=== PATIENT | female | born 1965 | race Two or more races ===

== ENCOUNTER 2020-10-16 06:32 | Emergency (ER) | payer OTHER ==
[~2020-10-16] VITALS: Ht 154.9 cm; Wt 77.1 kg
[2020-10-16 07:14] LABS: Basophils # (auto) 0 10 ^3/uL (0-0.2); Basophils % (auto) 0.7 % (0.0-2.0); Eosinophils # (auto) 0.1 10 ^3/uL (0-0.8); Hematocrit 44.5 % (36.0-46.0); Hemoglobin 15.1 g/dL (12.2-16.2); Lymphocytes # (auto) 1.8 10 ^3/uL (0.4-5.4); Lymphocytes % (auto) 27.9 % (10.0-50.0); Mean Corpuscular Hemoglobin 27.6 pg (28.0-32.0); Mean Corpuscular Volume 81.4 fL (80.0-100.0); Monocytes # (auto) 0.5 10 ^3/uL (0-1.3); Monocytes % (auto) 7.6 % (0.0-12.0); Neutrophils # (auto) 3.9 10 ^3/uL (1.6-8.6); Neutrophils % (auto) 61.8 % (37.0-80.0); Nucleated Red Blood Cells % 0.2 %; Platelet Count (auto) 217 10^3/uL (140-450); Red Blood Cells 5.47 10^6/uL (4.0-5.20); Red Cell Distribution Width 15.3 % (11.8-14.3); White Blood Cell 6.3 10^3/uL (4.4-10.8)
[2020-10-16 07:26] LABS: Urine Bacteria FEW /hpf (None Seen); Urine Blood TRACE /uL (Negative); Urine Hyaline Cast FEW /lpf (0 - 2); Urine Mucus FEW (None Seen); Urine Specific Gravity 1.018 (1.001-1.035); Urine WBC 9 /hpf (0 - 5)
[2020-10-16 07:31] LABS: Albumin 3.8 g/dL (3.4-5.0); BUN/Creatinine Ratio 19.7; Calcium 10.1 mg/dL (8.5-10.1); Potassium 3.9 mmol/L (3.5-5.1)
[2020-10-16 07:33] LABS: Bilirubin, Total 0.5 mg/dL (0.2-1.0); Total Protein 7.8 g/dL (6.4-8.2)
[2020-10-16 10:05] VITALS: BP 154/89
[2020-10-16] MEDS ORDERED: KETOROLAC TROMETH 60MG/2ML VIAL IM ONE (10:30)
== END 2020-10-16 10:58 | disposition home or self-care (01) ==
LOC: ER 06:32
DX: N39.0 Urinary tract infection, site not specified (principal); K70.0 Alcoholic fatty liver; R74.8 Abnormal levels of other serum enzymes
CPT/HCPCS: 36415; 76705; 80053; 81001; 83690; 85025; 93005; 96372; 99285; J1885

== ENCOUNTER 2021-01-23 07:58 | Emergency (ER) | payer MEDICAID ==
[2021-01-23 08:33] VITALS: BP 154/64
[2021-01-23] MEDS ORDERED: ACETAMINOPHEN 500 MG TAB PO ONE (09:15)
== END 2021-01-23 09:48 | disposition home or self-care (01) ==
LOC: ER 07:58
DX: R51.9 Headache, unspecified (principal); N39.0 Urinary tract infection, site not specified; E23.6 Other disorders of pituitary gland
CPT/HCPCS: 70450

== ENCOUNTER 2021-12-13 09:31 | Emergency (ER) | payer MEDICAID ==
[~2021-12-13] VITALS: Ht 152.4 cm; Wt 65.0 kg
[2021-12-13 10:55] LABS: Basophils # (auto) 0.1 10 ^3/uL (0-0.2); Basophils % (auto) 1.7 % (0.0-2.0); Eosinophils # (auto) 0.1 10 ^3/uL (0-0.8); Eosinophils % (auto) 1.2 % (0.0-7.0); Hematocrit 46.4 % (36.0-46.0); Hemoglobin 15.5 g/dL (12.2-16.2); Lymphocytes # (auto) 1.9 10 ^3/uL (0.4-5.4); Lymphocytes % (auto) 39.3 % (10.0-50.0); Mean Corpuscular Hemoglobin 27.2 pg (28.0-32.0); Mean Corpuscular Hgb Conc. 33.5 g/dL (32.0-36.0); Mean Corpuscular Volume 81.2 fL (80.0-100.0); Monocytes # (auto) 0.6 10 ^3/uL (0-1.3); Monocytes % (auto) 12.1 % (0.0-12.0); Neutrophils # (auto) 2.3 10 ^3/uL (1.6-8.6); Neutrophils % (auto) 45.7 % (37.0-80.0); Nucleated Red Blood Cells % 0.3 %; Red Blood Cells 5.71 10^6/uL (4.0-5.20); Red Cell Distribution Width 13.8 % (11.8-14.3)
[2021-12-13 11:01] LABS: Albumin 3.7 g/dL (3.4-5.0); BUN/Creatinine Ratio 12.3; Calcium 9.5 mg/dL (8.5-10.1); Magnesium 2.2 mg/dL (1.6-2.6); Potassium 3.8 mmol/L (3.5-5.1)
[2021-12-13 11:04] LABS: Bilirubin, Total 0.6 mg/dL (0.2-1.0); Total Protein 7.7 g/dL (6.4-8.2)
[2021-12-13 11:05] LABS: Urine Bacteria FEW /hpf (None Seen); Urine Blood TRACE /uL (Negative); Urine Mucus FEW (None Seen); Urine Specific Gravity 1.027 (1.001-1.035); Urine WBC 14 /hpf (0 - 5)
[2021-12-13] MEDS: cefTRIAXone 1GM/50ML D5W 50 ML IV ONE (13:00)
[2021-12-13 15:45] VITALS: BP 121/77
[2021-12-13] MEDS ORDERED: TRAM50TA2 PO (17:09)
[2021-12-13] MEDS ORDERED: CEFD300C2 PO (17:09)
[2021-12-13] MEDS ORDERED: SENN1TAB88 PO (17:09)
[2021-12-13] MEDS ORDERED: METO-281 PO (17:09)
== END 2021-12-13 17:23 | disposition home or self-care (01) ==
LOC: ER 09:31
DX: N39.0 Urinary tract infection, site not specified (principal); K70.0 Alcoholic fatty liver; K44.9 Diaphragmatic hernia without obstruction or gangrene; K59.00 Constipation, unspecified
CPT/HCPCS: 36415; 71046; 74176; 76856; 80053; 81001; 82150; 83690; 83735; 84443; 84484; 85025; 93005; 96365; 99285; J0696

== ENCOUNTER 2023-03-07 23:52 | Emergency (ER) | payer MEDICAID ==
[~2023-03-07] VITALS: Ht 154.9 cm; Wt 77.0 kg
[~2023-03-07 23:52] MED LIST: CEFD300C2 PO; METO-281 PO; SENN-208 PO; TRAM50TA2 PO
[2023-03-08 03:39] LABS: Urine Amorphous Crystal FEW /hpf (None Seen); Urine Bacteria NONE SEEN /hpf (None Seen); Urine Blood Negative /uL (Negative); Urine Clarity CLOUDY (Clear); Urine Color Yellow (Yellow); Urine Mucus FEW (None Seen); Urine Protein, UAD Negative (Negative); Urine Specific Gravity 1.029 (1.001-1.035); Urine Urobilinogen Normal (Negative); Urine WBC 17 /hpf (0 - 5); Urine pH 5.5 (5.0-8.0)
[2023-03-08] MEDS ORDERED: SULF800T23 PO (04:53)
[2023-03-08] MEDS ORDERED: CYCL-837 PO (04:53)
[2023-03-08] MEDS ORDERED: IBUP-1456 PO (04:53)
[2023-03-08] MEDS ORDERED: KETOROLAC TROMETH 60MG/2ML VIAL IM ONE (05:00)
[2023-03-08] MEDS ORDERED: cefTRIAXone SOD 1,000 MG VL IM ONE (05:00)
[2023-03-08 05:08] VITALS: BP 129/72; PULSE 78; RESP 17; TEMP 98; O2SAT 99
== END 2023-03-08 05:30 | disposition home or self-care (01) ==
LOC: ER 23:52
DX: S39.012A Strain of muscle, fascia and tendon of lower back, initial encounter (principal); N39.0 Urinary tract infection, site not specified; Z98.890 Other specified postprocedural states; Z79.1 Long term (current) use of non-steroidal anti-inflammatories (NSAID); Z79.899 Other long term (current) drug therapy; X58.XXXA Exposure to other specified factors, initial encounter; Y93.89 Activity, other specified; Y92.89 Other specified places as the place of occurrence of the external cause; Y99.8 Other external cause status
CPT/HCPCS: 72100; 81001; 96372; 99284; J0696; J1885

== ENCOUNTER 2023-04-25 18:02 | Emergency (ER) | payer MEDICAID ==
[~2023-04-25] VITALS: Ht 152.4 cm; Wt 77.9 kg
[~2023-04-25 18:02] MED LIST changes: +CYCL-837 PO; +IBUP-1456 PO; +SULF800T23 PO
[2023-04-25 21:52] LABS: Basophils # (auto) 0 10 ^3/uL (0-0.2); Basophils % (auto) 0.4 % (0.0-2.0); Eosinophils # (auto) 0 10 ^3/uL (0-0.8); Eosinophils % (auto) 0.3 % (0.0-7.0); Hematocrit 47.8 % (36.0-46.0); Hemoglobin 16.2 g/dL (12.2-16.2); Lymphocytes # (auto) 2.1 10 ^3/uL (0.4-5.4); Lymphocytes % (auto) 27.2 % (10.0-50.0); Mean Corpuscular Hemoglobin 28.8 pg (28.0-32.0); Mean Corpuscular Hgb Conc. 33.9 g/dL (32.0-36.0); Monocytes # (auto) 0.8 10 ^3/uL (0-1.3); Monocytes % (auto) 10.7 % (0.0-12.0); Neutrophils # (auto) 4.6 10 ^3/uL (1.6-8.6); Neutrophils % (auto) 61.4 % (37.0-80.0); Nucleated Red Blood Cells % 0.7 %; Red Blood Cells 5.63 10^6/uL (4.0-5.20); Red Cell Distribution Width 13.6 % (11.8-14.3); White Blood Cell 7.6 10^3/uL (4.4-10.8)
[2023-04-25] MEDS ORDERED: KETOROLAC TROMETH 30 MG/ML 1ML VIAL IM ONE (22:15)
[2023-04-25] MEDS ORDERED: OXYMETAZOLINE HCL 0.05 % NASAL SPRAY 15ML EACHNOSTRI ONE (22:15)
[2023-04-25 22:53] LABS: Alanine Aminotransferase 94 U/L (7-40); Albumin 4.8 g/dL (3.2-4.8); Alkaline Phosphatase 90 U/L (46-116); Anion Gap 9 (5-15); Aspartate Aminotransferase 38 U/L (13-40); BUN/Creatinine Ratio 17.2 (10.0-20.0); Bilirubin, Total 0.6 mg/dL (0.2-1.0); Blood Urea Nitrogen 11 mg/dL (9-23); Calcium 10.9 mg/dL (8.5-10.1); Carbon Dioxide 25 mmol/L (20-30); Chloride 107 mmol/L (98-107); Glucose 106 mg/dL (74-106); Sodium 141 mmol/L (136-145)
[2023-04-25 22:54] LABS: Total Protein 7.2 g/dL (5.7-8.2)
[2023-04-25 23:20] VITALS: BP 110/66; PULSE 104; RESP 14; TEMP 98.2; O2SAT 96
[2023-04-25] MEDS ORDERED: PSEUDOEPHEDRINE HCL 30 MG TAB PO ONE (23:30)
[2023-04-25] MEDS ORDERED: FLUTICASONE PROP NASAL SPR 0.05 % (50MCG) 16GM EACHNOSTRI ONE (23:45)
== END 2023-04-26 00:19 | disposition home or self-care (01) ==
LOC: ER 18:02
DX: J32.9 Chronic sinusitis, unspecified (principal); R51.9 Headache, unspecified; R09.81 Nasal congestion; R07.89 Other chest pain; Z79.1 Long term (current) use of non-steroidal anti-inflammatories (NSAID); Z79.899 Other long term (current) drug therapy
CPT/HCPCS: 36415; 71045; 80053; 84484; 85025; 93005; 96372; 99285; J1885